=== PATIENT | female | born 1950 | race Caucasian/White ===

== ENCOUNTER → 2020-10-10 | Outpatient (CLI) | payer MEDICARE ==
[~2020-10-10] MED LIST: ALBU2.5V8 INH; CYCL10TA2 PO; IBUP-1027 PO; LOSA100T14 PO; OMEP40CA45 PO; PRAV20TA2 PO; VENL37.5 PO
[2020-10-10 08:46] LABS: BASO # 0.1 x10^3/uL (0.0-0.2); BASO % 1 % (0-3); EOS # 0.1 x10^3/uL (0.0-0.7); EOS % 1 % (0-3); HEMATOCRIT 41.3 % (36.0-47.0); HEMOGLOBIN 14.3 g/dL (12.0-15.5); LYMPH # 2.4 x10^3/uL (1.0-4.8); LYMPH % 27 % (24-48); MEAN CORPUSCULAR HEMOGLOBIN 30 pg (25-35); MEAN CORPUSCULAR HGB CONC 35 g/dL (31-37); MEAN CORPUSCULAR VOLUME 88 fL (79-100); MONO # 0.7 x10^3/uL (0.0-1.1); MONO % 8 % (0-9); NEUT # 5.6 x10^3/uL (1.8-7.7); NEUT % 63 % (31-73); PLATELET COUNT 281 x10^3/uL (140-400); WHITE BLOOD COUNT 8.9 x10^3/uL (4.0-11.0)
[2020-10-10 08:52] LABS: PROTHROMBIN TIME PATIENT 13.9 SEC (11.7-14.0)
[2020-10-10 09:03] LABS: ALBUMIN 3.3 g/dL (3.4-5.0); CREATININE 1.2 mg/dL (0.6-1.0); GFR 44.8; POTASSIUM 3.1 mmol/L (3.5-5.1)
--- NOTE | 2020-10-10 12:31 | EKG ---
[facility] [address] [place] [address] Test Date: 2020-10-10 Test Time: 12:11:02 Pat Name: ALICIA JOSEPH Department: Room: Gender: F Voice Over Announcer: MR IRWINB: 1950 Requested By: FARHANA VIERA Order Number: [id number] Reading MD: Carlos Parkinson MD Measurements Intervals [place] Rate: 89 P: 0 ND: 132 QRS: 10 QRSD: 132 T: 166 QT: 392 QTc: 478 Interpretive Statements PROBABLE SR BASELINE ARTIFACT LOW VOLTAGE NON-SPECIFIC ST/T CHANGES Electronically Signed On 10-10-2020 14:36:22 [employer] by Carlos Parkinson MD
--- NOTE | 2020-10-10 17:17 | RAD ---
EXAM: XR CHEST 2V INDICATION: Reason: joint prehab class-hx hypertension-preop eval left knee replacement 10/25 / Spl. I nstructions: / History: . TECHNIQUE: PA and lateral views COMPARISON: None FINDINGS: The heart size is normal. The great vessels appear unremarkable. There is no hilar or mediastinal mass. The lungs are clear. There is no pleural effusion or pneumothorax. There are no significant osseous abnormalities. Posterior spinal electrodes are evident with leads entering the thoracic spine at the approximate T12 -L1 level and terminating at the approximate T8 level. IMPRESSION: No active cardiopulmonary disease. Electronically signed by: Panda Rey MD (10/10/2020 5:15 PM) [id number]
[2020-10-11 00:08] LABS: HEMOGLOBIN A1C 6.1 % (4.8-5.6)
== END ==
LOC: SURGPAT 14:59
PROVIDERS: ATTEND Orthopaedic Surgery
DX: Z01.818 Encounter for other preprocedural examination (principal); M17.12 Unilateral primary osteoarthritis, left knee; I10 Essential (primary) hypertension; Z96.652 Presence of left artificial knee joint
CPT/HCPCS: 36415; 71046; 80048; 82040; 82306; 83036; 85025; 85610; 85730; 86140; 87641; 93005